=== PATIENT | female | born 1960 | race Two or more races ===

== ENCOUNTER 2018-04-03 10:08 | Inpatient (IN) | payer OTHER ==
[~2018-04-03] VITALS: Ht 165.1 cm; Wt 77.1 kg
[~2018-04-03 10:08] MED LIST: CELEBREX100 MG PO; CLONAZEPAM0.5 MG; DIURETICO; KETO10TA2 PO; ORPH100T PO
== END 2018-04-06 11:23 | disposition home or self-care (01) | DRG 390 ==
LOC: ER 10:08 → MEDJ 13:31
PROC: BW25ZZZ Computerized Tomography (CT Scan) of Chest, Abdomen and Pelvis (ICD-10-PCS; principal; 2018-04-03)
PROC: BW25Y0Z Computerized Tomography (CT Scan) of Chest, Abdomen and Pelvis using Other Contrast, Unenhanced and Enhanced (ICD-10-PCS; 2018-04-03)
DX: K56.690 Other partial intestinal obstruction (principal)

== ENCOUNTER 2019-10-05 08:13 | Emergency (ER) | payer OTHER ==
[~2019-10-05] VITALS: Ht 165.1 cm; Wt 77.1 kg
[2019-10-05] MEDS ORDERED: OSEL75CA PO (11:43)
[2019-10-05] MEDS ORDERED: KETO10TA2 PO (11:43)
[2019-10-05] MEDS ORDERED: MUCINEX DM ER1 EAC1 PO (11:43)
[2019-10-05] MEDS ORDERED: AIRBORNE EFFER1 EACH PO (11:43)
== END 2019-10-05 13:30 | disposition home or self-care (01) ==
LOC: ER 08:13
DX: J11.1 Influenza due to unidentified influenza virus with other respiratory manifestations (principal)

== ENCOUNTER 2022-03-22 01:26 | Emergency (ER) | payer OTHER ==
[~2022-03-22] VITALS: Ht 165.1 cm; Wt 69.4 kg
[~2022-03-22 01:26] MED LIST changes: +AIRBORNE EFFER1 EACH PO; +MUCINEX DM ER1 EAC1 PO; +OSEL75CA PO
[2022-03-22] MEDS ORDERED: NORFLEX100MG PO (03:56)
[2022-03-22] MEDS ORDERED: DICLOFENAC POTA50 MG PO (03:56)
== END 2022-03-22 04:00 | disposition home or self-care (01) ==
LOC: ER 01:26
DX: M54.2 Cervicalgia (principal); G43.909 Migraine, unspecified, not intractable, without status migrainosus

== ENCOUNTER 2022-09-23 09:48 | Emergency (ER) | payer OTHER ==
[~2022-09-23] VITALS: Ht 165.1 cm; Wt 74.8 kg
[~2022-09-23 09:48] MED LIST changes: +ACETAMINOPHEN650 M2; +DICLOFENAC POTA50 MG PO; +NORFLEX100MG PO
== END 2022-09-23 13:10 | disposition home or self-care (01) ==
LOC: ER 09:48
DX: S62.102A Fracture of unspecified carpal bone, left wrist, initial encounter for closed fracture (principal); Z88.0 Allergy status to penicillin; Z88.6 Allergy status to analgesic agent

== ENCOUNTER 2022-09-27 14:00 | Emergency (ER) | payer OTHER ==
[~2022-09-27] VITALS: Ht 165.1 cm; Wt 70.3 kg
[2022-09-27] MEDS ORDERED: ZITHROMAX500 MG PO ×2 (18:41→18:49)
[2022-09-27] MEDS ORDERED: TUSNEL DM LIQU473 ML PO (18:49)
== END 2022-09-27 19:47 | disposition home or self-care (01) ==
LOC: ER 14:00
DX: J02.9 Acute pharyngitis, unspecified (principal); Z20.822 Contact with and (suspected) exposure to COVID-19